=== PATIENT | male | born 1975 ===

== ENCOUNTER 2020-04-03 12:45 | Observation (INO) ==
[~2020-04-03 12:45] MED LIST: Buffered Lidocaine 1% SYRIN 1 ml INTRADERM ONE; Lactated Ringers 1000 ml BAG 1,000 ML IV SCH
[2020-04-03] MEDS ORDERED: Lidocaine 2% w EPI 1:100,000* 20 ML MDV VIAL ONE (14:58)
[2020-04-03] MEDS ORDERED: fentaNYL 100 mcg/2 ml 50 MCG/ML VIAL ONE (15:06)
[2020-04-03] MEDS ORDERED: Midazolam 5 mg/5 ml VIAL 1 mg/ml 5 ml VIAL (5 mg) ONE (15:06)
[2020-04-03] MEDS ORDERED: Povidone Iodine 5% OPTH 30 ML BTL ONE (15:33)
[2020-04-03] MEDS ORDERED: Naloxone 0.4 mg VIAL 0.4 mg/ml 1 ml VIAL IV PRN (16:15)
[2020-04-03] MEDS ORDERED: fentaNYL 100 mcg/2 ml 50 MCG/ML VIAL IV PRN (16:15)
[2020-04-03] MEDS ORDERED: Ondansetron 4 mg VIAL 2 MG/ML 2 ml VIAL IV PRN (16:15)
[2020-04-03] MEDS ORDERED: Levalbuterol 0.63MG/3ML NEB UNIT OF USE INH ONE (17:29)
[2020-04-03] MEDS ORDERED: Artificial Tear OPHTH.OINT 3.5 GM BOTH EYES PRN (19:26)
[2020-04-03] MEDS ORDERED: Artificial Tear OPHTH.OINT 3.5 GM BOTH EYES SCH (21:00)
[2020-04-03] MEDS ORDERED: Heparin 5000 UNITS/ML 1 mL VIAL SUBCUT ONE (22:00)
[2020-04-03] MEDS: Heparin 5000 UNITS/ML 1 mL VIAL SUBCUT SCH (22:13)
[2020-04-03] MEDS: Dextran 70/Hypromellose Tears Eye Drops 15 ml BTL (for Artificials Tears) BOTH EYES SCH (22:14)
[2020-04-04] MEDS ORDERED: Morphine 2 MG/ML SYRINGE IV ONE ×2 (03:41)
[2020-04-04] MEDS: Heparin 5000 UNITS/ML 1 mL VIAL SUBCUT SCH (06:14)
[2020-04-04 06:43] LABS: ABS Basophils 0.1 10^3/ul (0-0.2); ABS Eosinophils 0.1 10^3/ul (0-0.6); ABS Lymphocytes 1.5 10^3/ul (1.0-4.8); ABS Monocytes 1.3 10^3/ul (0-0.8); ABS Neutrophils 11.2 10^3/ul (1.5-7.7); Eosinophil % 0.7 %; Hematocrit 47 % (42-52); Hemoglobin 16.1 g/dL (14.0-18.0); Lymphocyte % 10.8 %; Mean Corpuscular HGB Conc 34 g/dL (31-36); Mean Corpuscular Hemoglobin 31 pg (27-31); Mean Corpuscular Volume 91 fL (80-94); Mean Platelet Volume 7.6 fL (7.4-10.4); Nucleated Red Blood Cells % 0.1; Platelet Count 314 10^3/uL (150-450); Red Blood Count 5.16 10^6 /uL (4.18-5.48); Red Cell Distribution Width 16 % (10-15); White Blood Count 14.2 10^3/uL (3.5-10.8)
[2020-04-04 08:58] VITALS: BP 119/79
[2020-04-04] MEDS ORDERED: Lansoprazole SUSP ORALSYR 3 MG/ML PO SCH (09:00)
[2020-04-04] MEDS: Dextran 70/Hypromellose Tears Eye Drops 15 ml BTL (for Artificials Tears) BOTH EYES SCH (09:48)
== END 2020-04-04 13:25 ==
LOC: SSU 12:45 → OR 20:16
PROVIDERS: ADMIT Otolaryngology; ATTEND Otolaryngology